=== PATIENT | male | born 1960 | race Caucasian/White ===

== ENCOUNTER 2016-07-23 02:47 | Emergency (ER) | payer MEDICAID, OTHER ==
[~2016-07-23] VITALS: Ht 190.5 cm; Wt 0.9 kg
[2016-07-23 02:50] VITALS: BP 157/103; PULSE 94; O2SAT 98
[2016-07-23 03:19] LABS: BASOPHILS % (AUTO) 0.3 % (0-3); EOSINOPHILS % (AUTO) 4.1 % (0-5); MONOCYTES % (AUTO) 7.6 % (4-12); Mean Corpuscular Hemoglobin 29.6 pg (27.0-35.0); Mean Corpuscular Volume 88.1 fL (81-100); Platelet Count 347 bil/L (150-400)
--- NOTE | 2016-07-23 03:48 | ED.REPORT ---
HPI-Abd Pain M 40 and Over Date of Service Jul 23, 2016 ED Provider: Joesph Downs MD Pt is a 56 y.o. male with a hx of methamphetamine use who presents to the ED c/ o chest pain onset several hours prior to arrival. Pt also reports associated belching, flatulence, and cough. Pt denies nausea, vomiting, and diarrhea. Nursing Notes Stated Complaint: CHEST PAIN Chief Complaint: Chest Pain Nursing Notes Reviewed: Yes Allergies: Coded Allergies: No Known Allergies (Unverified , 12/09/15) General Time Seen by MD: 03:14 Chief Complaint Other (Chest pain) Hx Obtained From: Patient Sudden in Onset?: Yes Onset Occurred: 1 - 4 hours ago Symptom Duration: Since onset Quality: Painful Severity: Current: Moderate Recent Healthcare: No recent doctor visit, No recent hospitalization Past Medical History Past Medical History Denies Past Surgical History Reports: Appendectomy Social History Drug Use: Meth Ambulatory Status Independent Review of Systems Flatulence Respiratory: Reports: Non-productive cough Cardiovascular: Reports: Chest pain GI: Reports: Belching, Denies: Diarrhea, Nausea, Vomiting Complete sys rev & neg: except as marked. Physical Exam Initial Vital Signs Vital Signs (First) Date Time Temp Pulse Resp B/P Pulse Ox O2 Delivery O2 Flow Rate FiO2 07/23/16 02:50 36.5 94 157/103 98 Room Air 07/23/16 05:49 18 Initial VS: Reviewed, Vital signs abnormal Head / Eyes: Atraumatic, Normocephalic Extremities: Vascular intact, Neuro intact Skin: Warm, Dry, No cyanosis Neurologic: Alert, Oriented, Nonfocal Psychiatric: Mood/affect normal, Behavior normal, Normal thought content General/Constitutional: Awake, Alert, Well appearing, Well developed, Well hydrated, Well nourished, Not toxic appearing Respiratory / Chest: Atraumatic, Breath sounds NL, Breath sounds = bilat, No respiratory distress, No rales, No rhonchi, No wheezing, No retractions, No stridor Chest Wall / Ribs: Positive: Sternum tender Cardiovascular: Heart rate NL, Regular rhythm, Heart sounds NL, No gallop, No murmurs, No rubs, Peripheral circulation NL Abdomen: Atraumatic, Soft, Non-tender, No guarding, No rebound, No distention Back: Atraumatic Interpretation & Diagnostics Lab Results Interpretation Result Diagram: 07/23/16 0311 07/23/16 0311 Test 07/23/16 03:11 White Blood Count 15.2th/mm3 (3.8-10.1) Red Blood Count 5.21mil/mm3 (4.40-5.80) Hemoglobin 15.4g/dL (13.8-17.2) Hematocrit 45.9% (41.0-50.0) Mean Corpuscular Volume 88.1fL (81-100) Mean Corpuscular Hemoglobin 29.6pg (27.0-35.0) Mean Corpuscular Hemoglobin Concent 33.6% (32.0-37.0) Red Cell Distribution Width 12.9% (12.3-15.4) Platelet Count 347bil/L (150-400) Neutrophils (%) (Auto) 73.0% (40-74) Lymphocytes (%) (Auto) 14.7% (14-46) Monocytes (%) (Auto) 7.6% (4-12) Eosinophils (%) (Auto) 4.1% (0-5) Basophils (%) (Auto) 0.3% (0-3) D-Dimer 0.6mg/L (<0.50) Sodium Level 139mEq/L (134-144) Potassium Level 4.1mEq/L (3.5-5.2) Chloride Level 101mEq/L (97-108) Carbon Dioxide Level 23mmol/L (18-29) Blood Urea Nitrogen 19mg/dL (6-24) Creatinine 0.98mg/dL (0.76-1.27) Estimat Glomerular Filtration Rate 83mL/min (>59) Glucose Level 84mg/dL (60-99) Calcium Level 9.8mg/dL (8.5-10.1) Magnesium Level 2.2mg/dL (1.6-2.6) Total Bilirubin 0.2mg/dL (0.0-1.2) Aspartate Amino Transf (AST/SGOT) 15U/L (0-50) Alanine Aminotransferase (ALT/SGPT) 18U/L (0-44) Alkaline Phosphatase 113U/L (25-150) Troponin T 0.010ug/L (0.0-0.011) Total Protein 7.9g/dL (6.4-8.4) Albumin 4.2g/dL (3.4-5.0) Hold Murrell Top Tube Received (Received) Lab Results Interpretation: Elevate white blood count, mild elevation of d-dimer. ECG Interpretation Time: 03:04 Interpreted by: ED physician Normal ECG Interpretation: Normal ECG w/ rate of... (83), Normal rate, Normal sinus rhythm X-Ray Chest Interpretation Chest Xray Interpretation: IMPRESSION: No acute cariopulmonary disease Interpretation / Wet Read by: Wet read ED physician Re-Eval/Medical Decision Med Decision/Clinical Course 56-year-old male presents with midsternal chest pain, pleuritic in nature. Initial ER work-up was negative. His d-dimer was mildly elevated at 0.6. CT PE Angio was performed which showed no evidence of pulmonary embolism. While awaiting the full results of this test he became tired of waiting and left without instructions or specific disposition. Source of Hx: Old records Time of Eval: 05:07 Re-Evaluation/Progress Note: Pt rechecked. Discussed need for CT, pt understands and agrees with plan. Counseled Regarding: Diagnosis, Lab results, Need for follow-up, When/why to return to ED Discharge & Departure Primary Impression: Chest pain Chest pain type: unspecified Qualified Code: R07.9 - Chest pain, unspecified Disposition: Home Vital Signs - All Vital Signs Date Time Temp Pulse Resp B/P Pulse Ox O2 Delivery O2 Flow Rate FiO2 07/23/16 05:49 91 18 156/99 96 Room Air 07/23/16 02:50 36.5 94 157/103 98 Room Air )( All Prior VS Reviewed: Yes Condition: Stable Patient Instructions: Chest Pain (ED) Additional Instructions: Patient left prior to receiving any instructions. Referrals: [facility]OPCP (PCP) [facility] [place] Attestation Portions of this note were transcribed by Ashanti Lebron. I, Dr. Downs personally performed the history, physical exam and medical decision-making; I reviewed and confirmed the accuracy of the information in the transcribed note. Signed by: [place] Scanlon, 07/23/16 and 06. copies to: [facility] Joesph Downs MD Jul 23, 2016 03:48 ASHANTI LEBRON Jul 23, 2016 04:10
[2016-07-23 03:51] LABS: TROPONIN T 0.01 ug/L (0.0-0.011)
[2016-07-23 04:11] LABS: Magnesium 2.2 mg/dL (1.6-2.6)
[2016-07-23 05:49] VITALS: BP 156/99; PULSE 91; RESP 18; O2SAT 96
--- NOTE | 2016-07-23 09:17 | DRSVH ---
PROCEDURE: X-RAY CHEST ONE VIEW, PORTABLE ([id number]) INDICATIONS: CHEST PAIN TECHNIQUE: One view of the chest was acquired. COMPARISON: None. FINDINGS: Surgical changes and devices: None. Lungs and pleura: No pleural effusions or pneumothorax. Lungs are clear. Mediastinum: Mediastinal contours appear normal. Heart size is normal. Bones and chest wall: No suspicious bony lesions. Overlying soft tissues appear unremarkable. IMPRESSION: No acute cardiopulmonary disease. Dictated by: Benjamin Mixon [facility] Interpreted: Yeny Underwood MD on 07/23/2016 at 9:17 Transcribed by: BIANCA on 07/23/2016 at 9:17 Approved by: Yeny Underwood MD, PhD on 07/23/2016 at 17:25
--- NOTE | 2016-07-23 09:43 | DRSVH ---
PROCEDURE: CT ANGIO CHEST PULMONARY EMBOLISM ([id number]) INDICATIONS: pleuritic chest pain, elev dimer TECHNIQUE: After the administration of intravenous contrast, 2 mm thick sections acquired from the pulmonary api tricia to the posterior costophrenic angles. 3-dimensional maximum intensity projection (MIP) coronal a nd sagittal reformats were then acquired through the thorax. For radiation dose reduction, the follo wing was used: automated exposure control, adjustment of mA and/or kV according to patient size. COMPARISON: None. FINDINGS: Image quality: Excellent. Pulmonary arteries: Pulmonary arteries are normal in size, and demonstrate no intraluminal filling d efects to suggest central pulmonary embolism. Lungs and pleura: No evidence of pneumonia, nor edema. Within the superior aspect of the right middle lobe, there is a pleural-based 7 mm diameter nodule along the inferior aspect of the minor fissure. No pleural effusions or pneumothorax. Central and peripheral airways are patent. Mediastinum: Heart size is normal, without pericardial effusion. No mediastinal or hilar adenopathy . There is a mildly enlarged, 9 mm short axis lymph node within the posterior inferior mediastinum ad jacent to the hiatal hernia. Thoracic aorta is normal in caliber and enhancement. Esophagus is norm al in caliber. There is a moderate hiatal hernia. There is possible thickening of the distal esophag us and gastric cardia. Bones and chest wall: No suspicious bony lesions. Ribs and thoracic spine appear intact throughout. Thyroid gland is within normal limits as visualized. No axillary or supraclavicular adenopathy. Abdomen: Visualized upper abdominal solid organs appear normal in the early arterial phase of enhanc ement. IMPRESSION: 1. No acute process. No pulmonary embolus. 2. Hiatal hernia, with mildly prominent adjacent lymph node. This could indicate underlying infection or neoplasm. Further assessment with endoscopy is recommended. 3. 7 mm diameter right middle lobe nodule; followup is recommended as below. 4. Findings and recommendations were discussed with Dr. Downs on 07.23.16 at 0940 hrs. Fleischner Society criteria for SOLID lung nodule followup. Nodule size (mm)Low-risk patientHigh-risk [id number] follow-up neededFollow-up at 12 mo; if no churchill e, no further follow-up>[id number] CT at 12 mo; if no change, no further follow-up needed.Initial f ollow-up CT at 6-12 mo, then 18-24 mo if no change. >6-8Initial follow-up CT at 6-12 mo, then 18-24 mo if no change. Initial follow-up CT at 3-6 mo, then 9-12 mo and 24 mo if no change. >8Follow-up CT at 3, 9, 24 mo. Or PET and/or biopsy.Same as for low-risk pts. Dictated by: Ross Trivedi M.D. on 07/23/2016 at 9:33 Approved by: Ross Trivedi M.D. on 07/23/2016 at 9:42
== END 2016-07-23 07:36 | disposition home or self-care (01) ==
LOC: SED 02:47
DX: R07.81 Pleurodynia (principal); R05 Cough; R14.3 Flatulence; R14.2 Eructation; F15.20 Other stimulant dependence, uncomplicated
CPT/HCPCS: 36415; 71010; 71275; 80053; 83735; 84484; 85025; 85379; 93005; 99285; Q9967